=== PATIENT | female | born 1950 | race Asian ===

== ENCOUNTER 2017-06-18 06:57 | Emergency (ER) | payer OTHER ==
[~2017-06-18] VITALS: Ht 154.9 cm; Wt 61.7 kg
[2017-06-18 07:28] VITALS: BP 133/91
== END 2017-06-18 07:48 | disposition home or self-care (01) ==
LOC: ER 06:57
DX: R51 Headache (principal); M25.519 Pain in unspecified shoulder; V49.49XA Driver injured in collision with other motor vehicles in traffic accident, initial encounter; Y93.89 Activity, other specified; Y99.8 Other external cause status; Y92.410 Unspecified street and highway as the place of occurrence of the external cause